=== PATIENT | female | born 1970 | race African-American/Black ===

== ENCOUNTER 2019-04-11 18:24 | Emergency (ER) | payer OTHER ==
[~2019-04-11] VITALS: Ht 167.6 cm; Wt 75.0 kg
[2019-04-11] MEDS ORDERED: KETOROLAC TROMETHAMINE 60 MG/2 ML VIAL IM ONE (20:15)
[2019-04-11] MEDS ORDERED: CYCLOBENZAPRINE HCL 10 MG TABLET PO ONE (20:15)
[2019-04-11 21:26] VITALS: BP 155/98
== END 2019-04-11 21:48 | disposition home or self-care (01) ==
LOC: EMS 18:26
DX: M25.511 Pain in right shoulder (principal); M62.838 Other muscle spasm
CPT/HCPCS: 71046; 93005; 96372; 99283; J1885